=== PATIENT | female | born 1950 | race Caucasian/White ===

== ENCOUNTER → 2024-01-02 13:32 | Outpatient (REF) | payer MEDICARE, OTHER, SELFPAY | LOC: HWRCS 13:32 | PROVIDERS: ATTENDING PHYSICIAN Internal Medicine Cardiovascular Disease; FAMILY PHYSICIAN Student in an Organized Health Care Education/Training Program | DX: I35.1 Nonrheumatic aortic (valve) insufficiency (principal) | CPT/HCPCS: 93306 ==

== ENCOUNTER → 2024-02-12 14:23 | Outpatient (REF) | payer MEDICARE, OTHER, SELFPAY | LOC: RAD 14:23 | PROVIDERS: ATTENDING PHYSICIAN Internal Medicine Cardiovascular Disease; FAMILY PHYSICIAN Student in an Organized Health Care Education/Training Program | DX: R42 Dizziness and giddiness (principal); R09.89 Other specified symptoms and signs involving the circulatory and respiratory systems | CPT/HCPCS: 93880 ==

== ENCOUNTER → 2024-03-07 06:29 | Day surgery (SDC) | payer MEDICARE, OTHER, SELFPAY | LOC: GI 06:29 | PROVIDERS: ATTENDING PHYSICIAN Internal Medicine Gastroenterology | DX: Z12.11 Encounter for screening for malignant neoplasm of colon (principal); R19.5 Other fecal abnormalities; D12.2 Benign neoplasm of ascending colon; R13.10 Dysphagia, unspecified; K22.89 Other specified disease of esophagus; K44.9 Diaphragmatic hernia without obstruction or gangrene; K31.89 Other diseases of stomach and duodenum; K29.50 Unspecified chronic gastritis without bleeding; K31.A14 Gastric intestinal metaplasia without dysplasia, involving the cardia; K22.70 Barrett's esophagus without dysplasia; Q43.8 Other specified congenital malformations of intestine | CPT/HCPCS: 45385; 45381; 43239; 88305; 88342 ==

== ENCOUNTER → 2024-04-11 07:43 | Outpatient (REF) | payer MEDICARE, OTHER, SELFPAY | LOC: WDC 07:43 | PROVIDERS: ATTENDING PHYSICIAN Obstetrics & Gynecology; FAMILY PHYSICIAN Family Medicine | DX: Z12.31 Encounter for screening mammogram for malignant neoplasm of breast (principal) | CPT/HCPCS: 77063; 77067 ==

== ENCOUNTER → 2024-05-29 13:43 | Outpatient (REF) | payer MEDICARE, OTHER, SELFPAY | LOC: HWRAD 13:43 | PROVIDERS: ATTENDING PHYSICIAN Internal Medicine Cardiovascular Disease; FAMILY PHYSICIAN Student in an Organized Health Care Education/Training Program | DX: E78.2 Mixed hyperlipidemia (principal) | CPT/HCPCS: 75571 ==

== ENCOUNTER → 2024-08-01 08:53 | Outpatient (REF) | payer MEDICARE, OTHER, SELFPAY ==
[2024-08-01 10:27] LABS: Urine Albumin Negative (Neg - Trace); Urine Bilirubin Negative (Negative); Urine Character Clear (Clear); Urine Color Straw; Urine Glucose Negative (Negative); Urine Ketone Negative (Negative); Urine Leukocyte Negative (Negative); Urine Nitrite Negative (Negative); Urine Occult Blood Negative (Negative); Urine Specific Gravity 1.015 (<1.030); Urine Urobilinogen Negative (Neg - 1+)
[2024-08-01 10:28] LABS: % Basophils 1.5 % (0-2); % Eosinophils 1.3 % (0-6); % Immature Granulocytes 0.4 % (0-0.5); % Lymphocytes 24.6 % (20.5-51.1); % Monocytes 9.6 % (1.7-9.3); % Neutrophils 62.6 % (42.2-75.2); Absolute Basophils 0.1 10^3/uL (0-0.2); Absolute Eosinophils 0.1 10^3/uL (0-0.7); Absolute Lymphocytes 1.2 10^3/uL (1.2-3.4); Absolute Monocytes 0.5 10^3/uL (0.1-0.6); Hematocrit 42.6 % (37.0-47.0); Hemoglobin 14.7 g/dL (12.0-16.0); Mean Corp Hgb Conc. 34.5 g/dL (33.0-37.0); Mean Corpuscular Hgb 33.6 pg (27.0-31.0); Mean Corpuscular Volume 97.3 fL (81.0-99.0); Mean Platelet Volume 9.6 fL (7.4-10.4); Nucleated Red Blood Cells % 0 %; Platelet Count 167 10^3/uL (130-400); Red Blood Cell Count 4.38 10^6/uL (4.20-5.40); Red Cell Dist. Width 13.2 % (11.5-14.5); White Blood Cell Count 4.7 10^3/uL (4.8-10.8)
[2024-08-01 10:32] LABS: INR 1.02; PT 13.4 Sec (11.4-14.6)
[2024-08-01 10:33] LABS: APTT 35.3 Sec (23.4-35.0)
[2024-08-01 11:55] LABS: Blood Urea Nitrogen 17 mg/dl (7-17); Calcium 9.6 mg/dl (8.4-10.2); Carbon Dioxide 28 mmol/L (22-30); Chloride 102 mmol/L (98-107); Glucose 93 mg/dl (70-99); Potassium 4.1 mmol/L (3.5-5.1); Sodium 140 mmol/L (135-145); eGFR > 60.00
== END ==
LOC: SDSPAT 08:53
PROVIDERS: ATTENDING PHYSICIAN Surgery; FAMILY PHYSICIAN Family Medicine
DX: D49.4 Neoplasm of unspecified behavior of bladder (principal)
CPT/HCPCS: 36415; 80048; 81003; 85025; 85610; 85730; 93005

== ENCOUNTER 2024-08-02 06:21 | Day surgery (SDC) | payer MEDICARE, OTHER, SELFPAY ==
[2024-08-02] VITALS (9 sets, daily range): BP systolic 125–143; BP diastolic 74–112; BMI 22.6
[2024-08-02] MEDS: CYSVIEW KIT 100 MG INTRAVES (12:56)
[2024-08-02] MEDS: NORMOSOL-R/PLASMALYTE-A 1000 IV (12:58)
--- NOTE | 2024-08-02 14:59 | W.IMMPOSTOP ---
Surgical Immed Post Op Note
-
Primary Surgeon: Glenda
Pre-op Diagnosis: Bladder lesion
Post-op Diagnosis: Same
Procedure Performed: blue light bladder biopsy + fulguration (x1), intravesical Cysview
Anesthesia Type: LMA
Specimen / Cultures: Posterior bladder wall biopsy/None
Estimated Blood Loss: Negligible
Drains: None
Complications: None
Operative Findings:
White and blue light cystoscopy WITHOUT abnormal visible lesions/tumors or uptake of Cysview noted.
Posterior bladder wall biopsy site w/ excellent hemostasis on final cystoscopy.
[2024-08-02] MEDS: Pyridium 200 MG PO (15:22)
[2024-08-02] MEDS: DETROL LA 4 MG PO (15:22)
== END 2024-08-02 16:35 | disposition home or self-care (01) ==
LOC: SDS 06:21
PROVIDERS: ATTENDING PHYSICIAN Surgery; FAMILY PHYSICIAN Family Medicine
DX: N30.20 Other chronic cystitis without hematuria (principal); D41.4 Neoplasm of uncertain behavior of bladder
CPT/HCPCS: 52204; C9738; 88305; A9589

== ENCOUNTER 2025-03-12 06:23 | Day surgery (SDC) | payer MEDICARE, OTHER, SELFPAY | END 2025-03-12 13:08 | disposition home or self-care (01) | LOC: GI 06:23 | PROVIDERS: ATTENDING PHYSICIAN Internal Medicine Gastroenterology | DX: Z12.11 Encounter for screening for malignant neoplasm of colon (principal); K22.89 Other specified disease of esophagus; K31.7 Polyp of stomach and duodenum; Q39.9 Congenital malformation of esophagus, unspecified; Z86.0101 Personal history of adenomatous and serrated colon polyps | CPT/HCPCS: 43239; G0105; 88305 ==

== ENCOUNTER → 2025-04-07 08:21 | Outpatient (REF) | payer MEDICARE, OTHER, SELFPAY | LOC: RAD 08:21 | PROVIDERS: ATTENDING PHYSICIAN Internal Medicine Gastroenterology; FAMILY PHYSICIAN Student in an Organized Health Care Education/Training Program | DX: R13.19 Other dysphagia (principal) | CPT/HCPCS: 74221 ==

== ENCOUNTER → 2025-04-16 10:56 | Outpatient (REF) | payer MEDICARE, OTHER, SELFPAY | LOC: WDC 10:56 | PROVIDERS: ATTENDING PHYSICIAN Obstetrics & Gynecology; FAMILY PHYSICIAN Student in an Organized Health Care Education/Training Program | DX: Z12.31 Encounter for screening mammogram for malignant neoplasm of breast (principal) | CPT/HCPCS: 77063; 77067 ==

== ENCOUNTER → 2025-05-07 10:06 | Outpatient (REF) | payer MEDICARE, OTHER, SELFPAY | LOC: RAD 10:06 | PROVIDERS: ATTENDING PHYSICIAN Internal Medicine Rheumatology; FAMILY PHYSICIAN Student in an Organized Health Care Education/Training Program | DX: M81.0 Age-related osteoporosis without current pathological fracture (principal) | CPT/HCPCS: 77080 ==